=== PATIENT | female | born 1980 | race Two or more races ===

== ENCOUNTER 2025-01-17 13:10 | Emergency (ER) | payer MEDICAID ==
[~2025-01-17] VITALS: Ht 157.5 cm; Wt 49.1 kg
[2025-01-17 13:29] VITALS: BP 118/76; PULSE 84; RESP 18; TEMP 98.5; O2SAT 98
[2025-01-17 13:48] LABS: PLATELET COUNT (AUTO) 232 K/uL (150-450); RED BLOOD CELL COUNT(AUTO) 4.68 MIL/uL (4.00-5.20); RED CELL DISTRIBUTION WIDTH 15.4 % (11.5-14.5); WHITE BLOOD COUNT (AUTO) 3.9 K/uL (4.5-11.0)
[2025-01-17 13:50] LABS: CALCIUM, TOTAL 8.0 mg/dL (8.8-10.5); CREATININE 0.64 mg/dL (0.60-1.30); GLOMERULAR FILTR. RATE CALC > 60 mL/min (>60); GLUCOSE,RANDOM 92 mg/dL (70-110); SODIUM SERUM 141 mmol/L (136-145); UREA NITROGEN, BLOOD 13 mg/dL (7-18)
[2025-01-17] MEDS: SODIUM CHLORIDE 0.9% 1,000 ML IV ONE (13:50)
[2025-01-17] MEDS: LevETIRAcetam 1,000 MG in DEXTROSE 5%-WATER 100 ML IV ONE (13:50)
[2025-01-17 14:00] LABS: TROPONIN I-HIGH SENSITIVITY 7 ng/L (<51)
[2025-01-17 14:17] LABS: ASPARTATE AMINOTRANSFERASE 28.0 U/L (15-37); TOTAL PROTEIN, SERUM 6.8 g/dL (6.4-8.2)
[2025-01-17 15:51] LABS: APPEARANCE,URINE CLEAR (CLEAR); GLUCOSE, URINE (UA) TRACE mg/dL (NEGATIVE); LEUKOCYTE ESTERASE ,URINE NEGATIVE (NEGATIVE); NITRATE,URINE NEGATIVE (NEGATIVE); OCCULT BLOOD,URINE NEGATIVE (NEGATIVE); SPECIFIC GRAVITIY, URINE 1.023 (1.003-1.030)
== END 2025-01-17 17:26 | disposition home or self-care (01) ==
LOC: EMS 13:10
DX: R55 Syncope and collapse (principal); R51.9 Headache, unspecified; R06.02 Shortness of breath; E11.9 Type 2 diabetes mellitus without complications; E78.00 Pure hypercholesterolemia, unspecified
CPT/HCPCS: 99285; 96374; 70450; 71045; 80048; 80076; 81003; 83880; 84484; 84703; 85025; 36415; 93005; J0712; J7060; 96365